=== PATIENT | male | born 1985 | race Caucasian/White ===

== ENCOUNTER 2017-04-19 19:49 | Emergency (ER) | payer OTHER ==
[~2017-04-19] VITALS: Ht 180.3 cm; Wt 95.0 kg
[2017-04-19 20:53] LABS: HEMATOCRIT 47.5 % (39.2-51.8); HEMOGLOBIN 16.3 g/dL (13.7-18.0); WHITE BLOOD COUNT 13.8 x10^3/uL (3.4-10)
[2017-04-19 21:05] LABS: BLOOD UREA NITROGEN 12 mg/dL (7-18)
[2017-04-19] MEDS ORDERED: LIDOCAINE 1%, 20ML ONE (21:35)
[2017-04-19 23:00] VITALS: BP 138/75
== END 2017-04-20 01:42 | disposition home or self-care (01) ==
LOC: ED 23:53
DX: M25.462 Effusion, left knee (principal); M25.461 Effusion, right knee; D72.829 Elevated white blood cell count, unspecified
CPT/HCPCS: 20605; 20610; 36415; 80048; 82040; 82945; 83615; 84157; 84550; 84560; 85025; 85810; 87070; 87205; 89050; 89060; 99285